=== PATIENT | male | born 2000 | race Caucasian/White ===

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

== ENCOUNTER 2020-07-05 16:50 | Emergency (ER) | payer MEDICAID, OTHER ==
[~2020-07-05] VITALS: Ht 172.7 cm; Wt 106.5 kg
[~2020-07-05 16:50] MED LIST changes: +HYDR-4571 PO
--- OUTSIDE RECORDS SUMMARY | 2020-07-05 16:57 | CCD ---
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 WITHOUT CONTRAST 89258 CODE 02/17/2020 2:15 PM EDT 02/17[facility]2020 [facility]15 [facility] HEAD WITHOUT CONTRAST 70 450 CODE 02/17/2020 2:15 PM EDT 02/17/2020 [facility], ONE VIEW ONLY 69990 XR FEMUR, ONE VIEW ONLY 69904 C ODE 02/17/2020 2:11 PM EDT 02/17/2020 02:11:49 PM EDT [facility] RADIOLOGIC EXAMINATION PELVIS 1/2 VIEWS XR PELVIS 1-2 VIEWS 721 70 CODE 02/17/2020 2:11 PM EDT 02/17/2020 02:11:[address] [facility] XR CHEST FRONTAL ONLY 53577 XR CHEST FRONTAL ONLY 79739 CODE 02/17/2020 2:11 PM EDT 02/17/2020 02:11:49 PM EDT [facility] TROPONIN QUANTITATIVE POCT ISTAT TROPONIN Routine 02/17/2020 2:07 PM EDT 02/17/2020 02:07:[address] [facility] BASIC METABOLIC PANEL CALCIUM IONIZED POCT ISTAT CHEM8 Routine 02/17/2020 2:03 PM EDT 02/17/2020 02:03:00 PM EDT [facility] BLOOD GASES ANY COMBINATION PH PCO2 PO2 CO2 HCO3 POCT ISTAT VBG /LAC Routine 02/17/2020 1:59 PM EDT 02/17/2020 01:59:[address] [facility] THROMBOPLASTIN TIME PARTIAL PLASMA/WHOLE BLOOD PARTIA L THROMBOPLASTIN TIME (PTT) CODE 02/17/2020 1:55 PM EDT 02/17/2020 01:55 :[address] [facility] ETHYL ALCOHOL LEVEL ETHYL ALCOHOL LEVEL CODE 02/17/2020 1:55 PM EDT 02/17/2020 01:55:[address] [facility] PROTHROMBIN TIME PROTIME INR CODE 02/17/2020 1:55 PM EDT 02/17/2020 01:55:[address] [facility] FIBRINOGEN ACTIVITY FIBRINOGEN LEVEL Routine 02/17/2020 1:55 PM ED T 02/17/2020 01:55:[address] [facility] BLOOD COUNT COMPLETE AUTO&AUTO DIFRNTL WBC COUNT CBC AND DIFFER ENTIAL CODE 02/17/2020 1:55 PM EDT 02/17/2020 01:55:00 PM EDT [facility] BLOOD TYPING ABO TYPE AND SCREEN CODE 02/17/2020 1:55 PM EDT 02/17/2020 01:55:00 PM EDT [facility] TROPONIN QUANTITATIVE TROPONIN T Routine 02/17/2020 1:55 PM EDT 02/17/2020 01:55:00 PM EDT [facility] COMPREHENSIVE METABOLIC PANEL COMPREHENSIVE METABOLIC PANEL COD E 02/17/2020 1:55 PM EDT 02/17/2020 01:55:00 PM EDT [facility] Results ID Date Data Source [id number] 02/24/2020 08:28:41 PM EDT [facility] Name Value Range Interpretation Code Description Data Zahida rce(s) Supporting Document(s) Discharge Summary [facility] LDEPNr7nVsVPOaKa79/SDHnrQABno7QpHPmyDYw5HIcpWIRkR6CqAID6xQ6lIRN1LWpZQsIjSaAjCDH0 lbm [file] ICAgICAgICAgICAgICAgICAgICAgICAgICAgICAgICAgICAgICAgICAgICAgICAgICAgICAgICAgICAg ICAgICAgICAgICAgICAgICAgICAgICAgICAgICAgIC AgICAgICAgDQogICAgICAgICAgICAgICAgICAgICAgICAgICAgICAgICAgICAgICAgICAgICAgICAgIC AgICAgICAgICAgICAgICAgICAgICAgICAgICAgICAgICAgICAgICAgICAgICAgICAgDQogICAgICAgIC AgICAgICAgICAgICAgICAgICAgICAgICAgICAgICAg ICAgICAgICAgICAgICAgICAgICAgICAgICAgICAgICAgICAgICAgICAgICAgICAgICAgICAgICAgICAg DQogICAgICAgICAgICAgICAgICAgICAgICAgICAgICAgICAgICAgICAgICAgICAgICAgICAgICAgICAg ICAgICAgICAgICAgICAgICAgICAgICAgICAgICAgIC AgICAgICAgICAgDQogICAgICAgICAgICAgICAgICAgICAgICAgICAgICAgICAgICAgICAgICAgICAgIC AgICAgICAgICAgICAgICAgICAgICAgICAgICAgICAgICAgICAgICAgICAgICAgICAgICAgDQogICAgIC AgICAgICAgICAgICAgICAgICAgICAgICAgICAgICAg ICAgICAgICAgICAgICAgICAgICAgICAgICAgICAgICAgICAgICAgICAgICAgICAgICAgICAgICAgICAg ICAgDQogICAgICAgICAgICAgICAgICAgICAgICAgICAgICAgICAgICAgICAgICAgICAgICAgICAgICAg ICAgICAgICAgICAgICAgICAgICAgICAgICAgICAgIC AgICAgICAgICAgICAgDQogICAgICAgICAgICAgICAgICAgICAgICAgICAgICAgICAgICAgICAgICAgIC AgICAgICAgICAgICAgICAgICAgICAgICAgICAgICAgICAgICAgICAgICAgICAgICAgICAgICAgDQogIC AgICAgICAgICAgICAgICAgICAgICAgICAgICAgICAg ICAgICAgICAgICAgICAgICAgICAgICAgICAgICAgICAgICAgICAgICAgICAgICAgICAgICAgICAgICAg ICAgICAgDQogICAgICAgICAgICAgICAgICAgICAgICAgICAgICAgICAgICAgICAgICAgICAgICAgICAg ICAgICAgICAgICAgICAgICAgICAgICAgICAgICAgIC UtRFAcAQUoYHKpPMLwYQBfVDy6O4hfDHUqZNCdQC0qQDf3Wj6+LGvWVrGeQZR8nlDdyA0VYS3oq4DxZU oiEPVxq9PyDXn0NG8IOBZxWKneUD5FEFaail8KIMNcOTBsuDPVx4zhYzEtFLI5XUQwLnayKT5GDGMbE7 otfvVmMRZkVGRNLIpvULXGLJhfXBWZXV6VPgNaK5Ch wO72NAIWVz7+SYioymFaVkpBTnIyCOPxv3OuUVz6JJ8MAASoMcqli8VvLjHkXFHVYMtaCP7VSCB6VKZ4 KMYwEk6XOKPeO371kcGxRF2SJh8JHkZpCT4cqm7YMcGmBCGwAscAGtz6RYqnMK8BnWPoIFyCeNXpbXXg R7HdC4OilWVjjBCrpKKMyx7nKJRiQ6hbthtsUdPdSO EjGJ43LdXoYcDeNJV3SIFjIE8lWSybFE7BQLZ9JWcpUVEhSLPbX1pIHmImBBVdGyCxoZteFH7OSqFgH1 BhcmVudCAyMyAwIFINCj4+EFjkfwAfOiwAObF8DXMqf9NhFKh8IY4HOFHcQEcmBN7PBDUrdN6bIVbmBQ 2BBwGsGTSoKMLNMjEdZ90viBGmYKv2S6OvVzCoJMIb RmlsZXMgPDwvTmFtZXMgWyBdDQogID4+ID4+TIpvFR3MJOkateWlTTJfWt1FOUPtPASiUH6bHVWoPEEp U7L9uAxsPVQNHyPpV0ildaizQC3iZXVaY265fUfegzXkLNQjUMBgMq1TFKBtAER4TJDqtEObPiGtZGNJ BXxuAP1RpVRiGQB5lF7gUYvbLWUgKWKoF1mRHyLnrV axDT12vKmaazBoiYJpWCw+Sk0ARS5qh3PxDCu2rmPtGPbaNOI2WWhySXFvDLNjSYSiMGV1PVV9UBOQBv VvMYTlKZOiDOhyGAXuVTSlvo6UIXXzVBChBxG8BtLeANPqWXDlPUbgYWTxYMK6SuqtTUClBJKfOG3JCc VlSIHuVCHiYNkqUNSlPCLxwy9KOIVzRASvPbDjBLJm KFNcKMJrNIseXPJrYNDuYCS3JJGuZOVcMX4EGzSkSGFnKDCcOTozFNExHKIfzv2KIHUiXKXlPfU8BvJc FQGmWROkMAryMKBfWPL7HVj2GHDeLOPvXB0JXlPrURPwESowUJQkKAKiXXFwbr6ZESGqOJCfOQN8LARf IZAgPKTmTMbjRQBnFDV2XuM9QGAwODKzIW7UFuOnUX InSZe6IjDwMJAkVAYhud1LOFZuRZVlGYS6VQLhICAjERGkLFhjWZAhVAAoIwiuHVEdPPNyKP4YEmAnFP IeSOY0CnztWLYcGLQzqt3QZHZwIHEtEXweEGLuHAKwNVFlPOopNBLlDZD1GNXgOADwYTKgUE2YAwDmZX DrJOKaXbGfFLAoPGCnao1PDMZrBHKzKuMoOEOcHQUe IKUxMNulUAPbQWH3JdMvBXEjMYIfCV8HQcAsJIXzUKepMKFvLIMuKQXxqp5DOGCyKBWeQQVwMoEnODWn UXHgAEekSLKhKPR4SGnmTEVaEXKdPD6ZOrIlTIWgYVi5LkMxLFXrXBVpjl5GtXDtyMvsxi7YUWdRRp8O dNegBUW1TEvmKa2kpUXgVKIaVUSGKe6PdcWeDWOoUB FFYXazQNBbVQTiQ8MrVnFrAHXbF3B0YFZjZwl7WYU7OqRmSFGmOEKuYxO4DTK1UmGnXBXvWpTpWkjnXD BiMrE7XHmkQcR9RwXeCxA+VG1eZVc+Qr6By9QmdtB3dhZcMQjlWDh9XE0IFJYJB4USNv== ID Date Data Source [id number] 02/24/2020 08:27:41 PM EDT [facility] Name Value Range Interpretation Code Description Data Zahida e(s) Supporting Document(s) History and Physical [facility] SIOSKj6iLrQPTjXp19/RSYqlOINmu4YiUHucXJg7JPamIELcL9LiREO9cO9mJMR2TSmJAzKpGxKrUGT2 lbm [file] 8aTCLTSm4+XUmcfFTmqOeaKOXVQbD9KKBwMQxpPEYKWk4F ID Date Data Source [id number] 02/20/2020 08:11:53 PM EDT [facility] Name Value Range Interpretation Code Description Data Zahida rce(s) Supporting Document(s) ED Provider Note [facility] LBWJBn1zQtNSJaTx44/DGIyhYTOnb9OiNLymBIa8MHpqDZCcU5HrLJH5fN2mPNT7WQeKMuEdEgBrVJH9 lbm [file] AfCoFfOtAW4QWs1LWuF6AST4rGYdQy6YOzd1TXlQVtFiXZ3DGBv= ID Date Data Source [id number] 02/20/2020 08:39:15 AM T [facility] Name Value Range Interpretation Code Description Data Zhaida rce(s) Supporting Document(s) [facility] TTJMWs1sDoKJXcLkj8NpYnLhULMtUO5xoaw2J8L3dZCxC2AcbAZnx4wbQ2RwH0XoYFQkPGLGVD3NvARp jb2 [file] 7xv/73x2++/OUvP//220+f//LvPr76+d99/Pzzr7/89MuPf/7sYg1i42465G6l96xki2AF37L1Kwa75b fSe0KgXJE3S4w+hz/89L/5akp4Z28odU0pH64bnC9L32v88ej/w1Tc44yk+uln28vz6XI5m1zvbfq0vm 5F9m0q1F70VIGoUe289/izoJJnst2Lhs/8xw9//nNU 1mcfH//z868+/98UvfvbqHG/PWt/+L2v5Z/sfWa/v1a3/AuCw4MO/0sen3ewdy+ErrQIOxp4d 9zc//PEvf//x59/+9Ec452++gB/Ih7N/9If/+vHZD/Z6hh+f/YC/+vbjd3/8yw9//r9/+/v/9lLeNn3P U3vmI1ajl3b/2D99+93Hv/9fr3v/3Z/++CEUVes0W5 9dq7wOS16/03/6/l3Xl49FCKZ86E+pxL0zZ1Y5myGYmK+6+CcF8UrXzloy1j56Ioe04S++/cn3H7/9f3 74r79+ebJRO9/+V8d+vX7r43//+V//9ke/Cb9e9W4//9a+0l134s//+cOff/S/l8mU06v//vh/79vyPL //X3/1w5u1uf3Wo/5q0I1Uwk/6yXnWX/5o5f1ibe+5 sYaW2TMs//Bv//nH3/9d6917r87+yo6v6j/8osm21Tg/9ZdXh/t0g761y550v7++3XlcNzhBvHHffPXV p6+//+6zovbwPRu6//vJntnYx+Cw+qvf/h8/fJSPP/9Xo22z2X78p6pUr4mFdWOtU061+hsa3GEGfZ/6 Sjuw467/+vazCPXcugDz4/MvvngNyq/h0h923RMV4s 37/iq9VNbLJkBfUTR2tzPshGkaoqJgYdoPBZbiNBJxCsa2JT0QlDPoEFWfL1S0AMQfgo1dEXWpNERbhP NiCmQuCZRGQQ5OzZImZV7VCAr6UPXnZKBpDpSsCMSegnQ0AYGcNNDnYADtS5PxioLbuVGyWHNwCl8+ZW 1dm3ZrWaTuJLQbZdo0LV4KzXCpWX6JqAJhdS8reeBm V461ecEqLDOcSsqfr7XpNWqcKUEVTW5MMZO0TSP0FTEiQn8+GJ6qe6WaZmEjHXGvDfg3YG3FpIScb6Kd EA0SI1IgYMRyLZDIMNG5c8EpBQUfrbivavdsP8UgXHU5vM3dSFD6SCWoVZssQNEkMQhcJOY1FpgmVZmh UXMlFTYwVFIlTBJkYQb5sCUgBA2OJ7OlKYSwIXIJMW SnvcBiHm2jQJjJIZ5MADbhWxHZTF4VAOzzEdj5RrU1RgmuW1E0GngwJ9MqZW4ZX9LnPZEjQFSWQGQjnw MqMH5RicZewW5cZNnZXRWGGJsGHJlfHyC5g46xjhOQMZBvNXIlWTrgPIXvTPDyXZLtEAAtQBChGLTsXP QnVE9VF5CdXKYyXIXUUHD9f5BdHPSeevhwowndXz5x bmRvYmo+ItdtOOPoh0QzVYcqW4U0nSLmU7IfY4MoYU7KvGVfAEntXRKrDMThDNWeR153bwTmQU6+ZW5k c8SeDjwjQLRMVNJoTLHrSCJbZLK5WnFgXMNqHTUpYZWeWfA7WhRfHcGWHVMhIJN2JDX3PpBqCSPkXRNq GZrxSKGwGCraYUT8DCVuYQWjZB6aNpSwRCBnWqC1Fg KkZDYqUXMtelMPLQUaFHToIACiGKE6KGGtVNKrFZezMFFnWWNvIJP0WTEqLVUgIF0kDrGaODRsVTZhXp tmWDRrGSDiznOLBXFbGSItUEL2IsEuFVPjANGvDGqjYEIrHEYuNys1KBHxTXWeIF9kNsDgRQCiLMH5VQ kgMDAwMDAgbiAKMDAwMDAwMDUyMyAwMDAwMCBuIAow WAUfRTHjMvGrFXLqGJYfCO4hOrWpWTRwREH6IPHoTLMqYEAivvTOQQUiJZEtHGi5UKHiQOShBUSaSXzo ZUNmDKLwOZR0ASFcZOIuER9bCcCnHDPsOEEvHVWfFIHzKQKnltFTVYZtMIVrBPM2ZLRtMUNiQDQvUXxb XIOdTKScOdp4THSfVLHwRK8bUpFpHHTjTWZ2TTRqZI QzPIMtsqGIMVAwKLA6VdkzZaRvYUGmIDTbKAemJRQcNCUwInE1VBPoIBQeYA6vSqTlWEOdIJM3GkEsOZ DqQFRvxzDBPEJgDHWxBGH6CrJnENAdJSAlWEgnCSBmIRUtBVQiFBF0TMP5DGMaCyMtEGsyTHKWAAdLP0 AedwSnMmOPY1sfAe0mGzPfJTRSC6Yde8SbCMOfCSNVZl0+IdF5IGY9jVWlRhj9YFL2BVtpZLRQQw== ID Date Data Source [id number] 02/20/2020 12:32:57 AM EDT [facility] XR CHEST FRONTAL ONLY [id number] RESULTI nterpreted by:MARY ClintonROCEDURE INFORMATION: Exam: XR Chest, 1 View Exam date and time: 02/20/2020 12:28 AM Age: 19 years old Clinical indication: Illness, unspecified; Fall (on) (from) other stairs and steps, initial encounter; Other: Chest pain TECHNIQUE: Imaging protocol: XR of the chest Views: 1 view. COMPARISON: CT THORAX WITH CONTRAST [id number] 02/17/2020 2:03 PM FINDINGS: Lungs: Unremarkable. No consolidation. Pleural space: No pleural effusion. No pneumothorax. Costophrenic angles partially cut off.Heart/Mediastinum: Unremarkable. No cardiomegaly. Bones/joints: Unremarkable. IMPRESSION: No acute lung pathology. THIS DOCUMENT HAS BEEN ELECTRONICALLY SIGNED BY KEYLA PETTY MDThis document has been electronically signed by Keyla Petty MD on 02/20/2020 12:32 AM Name Value Range Interpretation Code Description Data Zahida rce(s) Supporting Document(s) ID Date Data Source [id number] 02/19/2020 08:16:58 PM EDT [facility] Service Cmnt XXX-Imp : [employer] XXX Cult : 2019 nCoV Real-Time RT- PCR: NOT DETECTEDTest performed using [employer] Respiratory Panel. This test is only for use under Food and Drug Administration's Emergency Use Authorization.Additional information is available on the following FDA websites for health care providers and patients. https://www.fda.gov/media/657707/download , https://www.fda.go v/media/517825/downloadPolymerase chain reaction is NEGATIVE for Influenza A H1, H3 and 2009 H1 viruses, Influenza B virus, Respiratory syncytial virus, Human metapneumovirus, Parainfluenza virus 1,2,3 and 4, Adenovirus, Rhinovirus/ Enterovirus, Coronavirus HKU1, NL63, OC43 and 229E, Bordetella pertussis, B. parapertussis, Mycoplasma pneumoniae and Chlamydia pneumoniae. Name Value Range Interpretation Code Description Data Zahida rce(s) Supporting Document(s) ID Date Data Source [id number] 02/19/2020 04:43:[facility] [place] [facility]-Imp : [employer] XXX Cult : 2019 nCoV Real-Time RT- PCR: NOT DETECTEDTest performed using [employer] Respiratory Panel. This test is only for use under Food and Drug Administration's Emergency Use Authorization.Additional information is available on the following FDA websites for health care providers and patients. https://www.fda.gov/media/114876/download , https://www.fda.go v/media/599513/downloadPolymerase chain reaction is NEGATIVE for Influenza A H1, H3 and 2009 H1 viruses, Influenza B virus, Respiratory syncytial virus, Human metapneumovirus, Parainfluenza virus 1,2,3 and 4, Adenovirus, Rhinovirus/ Enterovirus, Coronavirus HKU1, NL63, OC43 and 229E, Bordetella pertussis, B. parapertussis, Mycoplasma pneumoniae and Chlamydia pneumoniae. Name Value Range Interpretation Code Description Data [facility] rce(s) Supporting Document(s) Microorganism identified in Unspecified specimen by [facility] This lab was ordered by [facility] and reported by [facility]. ID Date Data Source [id number] 02/19/2020 11:22:[address] [facility] [place] Name Value Range Interpretation Code Description Data Zahida rce(s) Supporting Document(s) [facility] JMXIQf6tGqCWKpKlo7YzSqIsHABlTB6rkxi1K6S3zCSzF1PpuMRdg9doS9WcV2RwQSWhOWBSXT1RsYXn jb2 [file] +zcWfMvY/3xV9/fY918J6Ga/+s5o+c5uQwRu65B/qP/8O/abdirashid/93+49o0klu6ae7l6y/f+vc/iqfBpb7j vjPyN3/6/v1E5d1/+k4/POmUrp+S1U7Myp+NgK7jv/ ZHz/bh+3/fK2GaD44uO8nyghz7d05p7c/QHqdT8ff+Og34X70gb/vt5/8h6CO2HMgom0/3lfV79Mw4c9 Y2GH7dI2JdR9T98mJVOG8O+OE8lZk0P2iZ2lW1hoCQbVqVk32F+m+g/wb6b+wqHa2Ey5l1zOxhMl6Bib xFp4SexsX8Im3NqzDlu8OcA8q5rBu5nosX3qY56N0w +t3kl5xcs0+WnD/oIlni9l5/cK87nC4r/k054r0uAg5i03fF6oZykU/4jiGfYegeo/2pr085o2r/PV5o I0kmpVf2lM7Br3o7hB97n0Y04Rkiy90e2h8R6AfgoA+3B4oH6bsrdz+Qzho9Lro7nT+Yyfia658jIkfe 3rBX85dqWx+u43kM9u30rxLOm4T0aU7ximC3nj2z/9 zr+u2GP2/92fzEko9Ot0/cubbhf7k7/17/lI/nfU/1+V1Qy0f4W9jqWrR+0D6+/n+vyiFvq9n0o8kOpw C+4s0eo795x5mCj9lDzaG2s74W5zFj7H7P2cWffM/+hPuG5eCtK4ca5yzoX5owb+1rN3+lYn8RO7ry/B 0h6nBE4+c5o40066g/4hKe0EpK23g3mByx9UeTQ1Zf 9/aBSze57WsXnxHlvx/6vsen/fxG/EoldeJXqqg7/CkyvG8ht0HGxfL1h0Dg1I0E2kD+2S1kAj1cRtmz qJSyk4GdkmBCM/yItlspLpdJS7VOTl+9FO54oj7bPyuYi/ySY45Qu79qB1B461gm+lgO7hphU3j72pmb A9e/5WQCHs0u0r2nCOu/cvArB7/o9Hi35ugis8716c AbF7/XH9U7cq3Y0aesfB1tIcugZ4PvCq6uUEc7pf9WbL+3K3BLpL+0W9GddN/wQa6p4XF5K/Knac07hp /TnpCgz3UvMyN80/QqLIySa2pRJ/Xw4D6BaohfWg80fvombb8+lqYfG5jkaUuQG9l4T2UnCj+1N/nJh1 /7WO057I83LBIu0stxZMTTYahSHLVZnDznwhs074mt 3T6/81ua9Md/o8vsbFKxrVwrPSp1SrRDQ58Y2H4NpD19Kb5IQi70GM//1HwtA1js6HsjzgpcU27P3bzM tn9gYwrUm8+C9rhIFb3osaJOOiQ+Erz6u3Dz3eYqeiBEx244fsfU0nwcjbTD+0A73u+auO/GrBpe0o0Y /rzgzxv+vB+8I89EnVq3rUqpK0uVo5pOv4a6+u+GP2 /03z2u/ks8rNv2sznC6u78Ua+d1yo9g6q6Fg/7qby+x9/z56Aq35H3C2L9yVwdB69O8+8gzR2RIpT+0K 7+q4wea84vQ0dB+hw28QeBI38oeN/CO8Mr9u3dJ/noSIQ9Y3oSv3n5T8f8+VoIyoF7Uy7T9SZVCxfROi t8stlC+0L7/z670WeihsApm17Pplk7oMvxB6dc1ggv M3kR5OS1zLrg9xkrlK6mtJX+4K5jmtM36/Z2+SGqL2lH4Sjp25223CA+AfiR8I6jCz0d6RQlL+6L99sG 6mWzg56O+mct62Qqg56g+qnz81DbA1M86m8fAf7A8D5nVz3Kb3ViOy570V5l7v7Y40r55MviC9KuqK/5 jVMXfY/Zfxm2aBfaXk8cm+NK4ixnD+1u8mDgshuI5s J1lPpxI9sU4Pokz+xrn0D/HXd+45RAJ/c+QkMUgE0QoOG2Q/+c3/pT/gt705R/RfgWqP7P9bi+lfXWN1 44lc/8TE3wPm0/8B0NYjD+2H21VPnNklTzAg8upy+SLpq/ymPoO+98Tps3/m0T/uk9flwMa/3njRdOmf U9hKo7Bb02uum+R/VzS7zZ83eD3tH0kw+loretta/y+P5+ 6cdZrg90X4yt/V34/gzt6BegC/cTmaju44bqT34rrPRNB61VrA7jJ0mwN58DpX+3LFf22BdH9b6i95ny 6Ds7sQEBn3Vi8d9qa7y//KrtjvZ+j2r0aieSwI725/mnqbfcmIkfY78yQ6dbL9wn6Tm2uw+1cmhxpe4p 7M/gW40oN2q8wU/efuqVp/E4EtrkkFneI/FCy+t84o U+go2uKbfKzvLHJTBGiDCtCM/a5E+3zT2DN43pjg3nZIn+Unmp5NF+9WhStorL9/vrh8pA1k/mzXH2Yb +p33/pz5w8JkhtvAu1ela3RlgMrn9+fLoQ3TpJ0pFyG/2kcj3hy/t+u11/8lSeY9Zs27s7Tfq4h38t0u +61gfz+Phz/zj9u6h7RW7W74uxZ7ckI+peWh/UuVof 5YX8Jnghkt/f+Ml1Jqv1llbc5TcHw1EmkG39fq2M9KJwZ+1S8Sjk8OgAo5obq09j/brnzz5K9zhhcHg9 bFq27YDgk6/kjmuuRj5kO9XH/U2zKoJsD+4X0JdjMo40Gid2MQ6GgvC9g29FFq/sAy54Nt+/649q68b4 3/Wj3u/2Zx30Agejx3pW7l7KxuSnOl/1fufbO/hVB7 /q4Fcd/AvWB8Xoth7X0J7sub+gNpE8Ix7g9wkR5bK2Ix+cDiZ34z7U5m/tlk7mVn8tzE9Zy/u4/LmPB+ 3WmlV4x77Z3bAf9M5TTw0Y0E6Rx2q0rE+7XtbHnW/i5nph5Dy/eo/RvtG+r4t48BqCheF1ti7B9wjgry e9rM+7vtDnXV/tu6B1ztH8Id+lJ0hjpF0Awjp+6pq/ ynPxfjV/igzb3Of/35Ye741ttLL9Ltemzqr09P6Z5t/C+114vwvvd+H9Fht27N5xxQ14Gdl6lI+Cvgv6 Lui7oe+Turxh4Ksi0145r/XU2F5imp1N6/pgqL1/eXvX+zZ8yqMJf5y7nihy60XPZms4SgkI+yV4utrA dmU5/Erzlqfc9+8B6Y00l6jvrhOaK+y9w0Mki3jojD 1w6/wzg7TXR5Zovs7xu9nrmPQyX6qM4+ZdhiWKjRY1uOIoM9EKk8JNDtBf0F8fLK2XiB4J8ymmgx71vd tehd31/bCbnxPiV+2o8a9io2uJeH+B5hbp9HMRVLm8KgEa1zB2U2ERxR+4M9LrmT+4n4WzzDZD/Kut4+ /3MZB/Group Home/XuPg5jckTw7E0A1uUe9J6eL7VNgP+0T7 GR9J3HcYalCgCX0CSo2ejwLumw+h+Gv6Plw8H2oz160hVG/wP8fs5bM1IS+VRbYffbdse/YfvK5nikI/ QyYa8fRlzZ5I4yPzSPA/2sB1mN14mLoQajd5Da2x1P+9x/LBEOc27f+SfQwgnZUdC1h7091Bax3alQVn Gh8Ij5855Usln0Mz1ryiLTY7F/oiRo2q2oR/pT7bb/ 8V8XqdS/5F2pO7GpFl97irO82axk1S6wmC+VeB/KtA/lUg/fkYgwM4FlotY+5W1N5yaRKDcnfrHEYaxF XyNZTp0WQAiWC1mCmjq/yriMsnI/OvdIz+G/UsctQFJunuN3Zi1p7f6WkdjrNn3n/6QiD/KrA+GAP6Du g7oO+Y+D3GK+EnlmE3JnQlcH9V48U60jHKL1yb4cYj aG9oR/+r9MizM2U2p8E3MWuQdtAi43tbptUi/Tri/uo9/sYFMW9+TaspC9Q53/shfpXHhnZD+23NJw31 9gC/QqCtJL1A0KtKingkq2tRE2c6/DnWjRcC+VexLn+FeiypvR19v84uY/4cG+RjWaAtxS04irR3ch+J 5aTt4X6gqLwnL2Y5fM1O7lE9fP/tB4BZ2g43S/TdV9 /iCS9Y76Xy1V0gi1F86aovB3g73ebgE+3R1yJ4qruS1qb6ngpO1w274UaP86ZdCW+DvuJXqq+xy5+H+N D8oTlWdwoc4Khxy9Og0H4C8T6R1V4RvZ8CjB0W0Q6Sc/lmw2++2xCT6XQ3J8zr5yGe4X6iH1zq/Wp9UL wnyqCeFw0wuaF2IUr4vQIYodOIILf91tqZ07KQEzc+ 8cXQ+uBW+/7y/1PnmvHFKXPNGOFUuWbscIpc/27UtlEuC55pfLk0K6F1xOk60dfkT/Q86o8ka/HR0Pqg 9GrQV+uDJwYZWh+U3bQ+UJqebPLGIQXJCu5e3x6c/ja9kfqxgwmpp/22SS286G32wfX3Rg/fn5R7CFOs an0wj+r9dqT8bR3efwR1ua5KP33+1/wT6MU3BD/Mily [file] n6gN+jennifer/YrnyqGpCwqvFx6JcIxK0XlMo7+zH0tl+DvYZNTrNlff2KYB7iPxfxX4S0nsqf23JJ8+LFX/ dOhsa/SwzY321WrmtyHXu2aUF43+3h0TMEU6grBZD5 ZXZVyIxcqtQvxRSdSe/W1wYx70dQQ4K6/nbYR+0qiXowg3SZQ0MitSlU8+LNWrTHvyE/aqH1QK14YLE1 xaM/uxXFn/VD+WCoggP+hQ0yxiw5ANCSPdiJsI/Viqast+LMcw/Ww7XA4hVSG6bBGT1oIyIE03pM8+Yp zmBm6Ar2Hd0q43JS11TNPaSyLSFWCUdNEyZShV0Zdz +onaoZ+lAxzS1cCmiH66gzvxt0bo+zzmiW5Zui2JQoMDVWmWaEejlaoQqq+cHk9rPj0RQ/QTtUM/UTv0 W4ULC1J36KV3Bn6SA/UEzgwZGOGJ2B/nFAIWeXS0RE/uMOaVOYVTMNWCq92u1MkZFowGJ+1c/Uqe4e6i iNgG0muwfww+ZXQBmYCsD7lnYScEeU2BV8hFEVjxC6 4ArPi49njbcUYyuftrnmG76eLvcnqW4MfBki2nUYTiPCv2kVVGqcZy6pLQCDoGpQhRKzuaRLyqOnjMsI Rpd2ScTAmntFkABPAldZ5oP5uzyzM5iK7GmFbP9PdBa+UxBpGjHajZj+ZUNOpPReG8Y3mO1rLJ7LZS0j 9RHN8CPfBTfORbmQxNKXWZzDHCZnCuFgESJIEVHJH4 dugnap+JxAZKZyPjARGPWQeBCKHOfiTKiJRbZKLtMXeCkXfAqkNkCbRtkGuW0WdCAKzY40YjMP4/V81+ LI+lQFHYS0KIfCBmnPZiKv9LcN9GMgv1kR57WriBYH7eNkwO44N65M730qDbKVWXHtThzUir9va1Wamt FiNm5XQnNX37ajBF55wP/Y1J0S0IAh1h2ufYWZiety E/UgOhb0USHaHD2B/bXPnN6EYLmO+aDl4NBdnkqtX/FS15gYc8XS6ABTwBUWyLbtBYDPDGBNsBtcWOYK N+ekt4S8N5abHNOlMmwQC7P2Hvm3iS/GJ64QjmJM6DIbcXwqVHHXC+osy1C7Gov0dJ/SJ81QwqID5CGL kOoJ+o1Y/kTHvaqyT2qpKyi/rFHt2FGoEipfxF4AdX maDAp6YWyHy6FA8b5Rxdaf9TBb2dR7f5n8VCNQYjx10+LHvcEROoD0FW1+gCsskN7R+vprlq4DEt0jWz /IaRCQSvK9kyiGd2UdmY6tRiVFoJTr+vTwo9yz8Y8CMUpr/2sIzHCUGi3BS04H6cCdbYjTuS3/qfu26c V/4Zp6Eq1A0fek18+nRsBUeCniUkh5MsaKRf0zRuG4 2IZT+ROygoK6sQVSa93BsUkZcE7rGR03WJ+BmDlbJIj1rvXnv5kKT+itMfsRLlFxnORc1kfA8q2Dhe+Y mUvaRPb1qpBzy3qZF+Darryl/RD61pQfOPHzj7AlGHnkIWFpi8YfORfjWIOxuxapJ9vyIvECfbQQldh4pul QYalp3T5xYzBAt8OvOC29cytwvWS7LeoQ1E8xGV3TM nIgTGUQGkYnROybPYPHcsLYv+1KsqnhvIVG4Hg+WYxBpRBoRjoPJcTDx/eO2ydWgjeHkuQ7k3ghEAhCE BDHOHXVMkc3rgqWL/rjgmuMKHn0tRBs21vTQu/hhkFXM0BNHqZYuMo9r7AfRCvjhBLN/5enJPSGMMr9b 4cYsLM77xqZC15n6dj+tR0ntZTnx4gKtRtqPSl7wb0 /oF+ZY/IKdg23USMH2esDWs/Orz2+xliVoQZ//6e9ejjklt/f2+f96+/d4vcZVXMQb7bp/sBov2w7//r e3//1w84dkudvrZ/xhSJyev/zq11+6RXn1ua9C0O3AF293pe8+fv+L4G++fh6/uOYXbfDvX2+uib//4c dv//ntx+9/+Jwm28s6du5++hkvX8u46jF1O/3246cf vvr8z7+uN75tx7+++/HzV99+sNy47oCxjf4+1bVAQ5oxQ0q9y/oewE6JdCrXirNkvd0ol7oCI769mZ0/ +eHTr7/68Ff+6x3Moaw83zksene+64+vc/r01T/79kPyt5502tnkr2r86jzG8804h4nbhn7hz//49v2H z58/fvr2r+xG6uK++/ybj5/+j69++Qg13Osfxngi9N cv/+Ewjk54MUpyq/vd2/zbKu52a+9e5/n6yx/bMcb0h3rhf/jV1x//yj/nfqL7U6/+6Y///vs//+Gnf3 v7H//n2ZupnaqT5bZ/+8eP/+3thw//+Pmr10n++sPbv/ytt3/5u7c//fFt/qM8Gv6AvYktq/O6FR+++S /TmLSN681H/vCHX/7aX04rDTiaE/fP5iXv88DIJLl/ fvO/OYwO67Nl59+/98VNVvrd1/dQ4lpjukmUtOSlYQ7J6CyVRJ88gt6n4Mqm/8Gnn/79pz//SnH6bppj 4v/57Zsvv/qs64tOKndi6w2tbv+6/kahSiKjs7qh5pZlsyB8AznuLFdY6iKT+eEBf/vTH//y929//t1f fnq3+0vZ98yG2Cb/9If//FwgWpc0n+x9g99/evv9H/ /y05//n9/9x1/Z/Q7o+77bqc3M8q/Z+8b+6dMPb//2f7/O/fd/+yHQeo5ztn/uqk3vbu1p5a//6fO/An /8acvjty7hcoPxc3cVLhhUwzgS5lMCw4HlmXSwHabeW/Zg3//i0y8+v/3u//3pP//bn2Lycgm55WEm/+ CpHb83aj//y9/97K/3ffjmd//x7v6ud+h3f/mfP/35 Z/+7ozyu3//x5//3IWzK5E//47/+7xO+T3/60x++uFei95/9yb7Wr//6i41QuaGAIakM2OQ///Sv//OP v//X3//uj1+7miPh65qxk7j2Ho/2f6wj9p67H5B7L//farm implement mechanic//yGnj/9sVffxPHCUROEI/kf1562/Hbzz98 wQf+/q37//+Qk9ROn2Eq5p8/93/+9CZvf/a0G364jp fV8+J4e/n5gvJ6o/t7991f0Irm7Ijqb+y7T7/++XmShOhtT276QsX+fPnldz9++/rbdos/hMIP7zw3/w GAeqAPFuKzQJT4rgUooQtrbuFpOtgTZAyeHNQfOlm7KE1PqEMeSJFeJ4D0IMWirj7yFKLrUPRxiJKjYf HxSPUFSN8QaEUrAC9RZKh0TTVzGEHfVmOmQJHtuvD0 ACCcADUsJXWwM7GfftFzlADcVVAuSh5+AT7za1DtMgEgSLTsDfi2DV0GrSSkVP8ApCKogD1qzhTgH496 ktLfFBQwPhwkd8ZxNMnrDPHGNY4VZBH3KRO4MFYvHa8+KV8vm2LwZgRrFOOqUlb3VT0PhYAiy2DkQL7O U1XfJUEmTTEFJQP3n1RfCIWigomtcbkxH8LtAJS5uH 2aJUE2RCAoACyqOMXdGKrpLdGeTjHrLXmwNAZbYXVxBRSzRQFiBGt1eTAjLR0XR5IzNTXlKZPOINYvyk VaIo5pQQnIZE8KQIheKhIWLQ6WMCanPvd2WmL1XyhsG8G5XdgdD1JiMO1CX0SyNCLmWZPUECMbqcDxKH 0TlcNfeC3oKXzKBSEIZTcHVRkvFqF6h93fqhRBRWZt WUNcNAhtVCKbCWWpTMGbDGLhUSWvTKZlFTRaGZ2ZA5IgODTmLSUJKAD2h6MuGAHmneqqbldtDp3jkiYk Ymo+PpagIHVxs5OiVAaqA9C0gJUcH9PjV6UjXR8JrHBkLUkzKNZdGLPoPSNlV027etUlVG7+FX8dz7Fa VjklTOXTYARoGKSsFFSgJGZ9TuPjRPIjLPLfTJXkWf E3GvCjVpSLKHBtFXQ7PAM5MOIwUYZoNRSnDIobDTQjNPnvIGP5DJHuGUYmNE1oCxDfOWZtJuBxMZKmDE VjDHXicdMIFZMzKANkHGPcTNW1AWCeOYWbHQgbWOElBOVpTFM1KCYbLXGzYY8kWlCkIEKfDNCpMszvXP YhLGCzxkVRABEcDVJgGBD0UfQtZASyMORmGXtiDTRf KPKgGmu4CMUzKXUbWD0qPeUyMHUlTMB6ODcsNIZxVEIydiXBCSHlDGJqCBOoGiZtVHEeOSKjFMgtPAUh XBJqWtWuGGUxCAPdDR1nVgNqRMChBKF6MCVhKAOgCLJidxRCZSIvDBQeTPv9SDRbHWRnDTEdLYtyNLBs IRBiWUV5BRCzYCZwMP6sVuLwZZLsAVCiWFNyQCSgVN YwnqAYQUPkXBWkCMA2ZERqNNEzSKQgSJgvPKWkEVZlZyh1DDMtLVQjQI8eDlUcRNZoVVG3CFQkDVCaDU IuwyLZRDIbQAH3RDjxXIGsFGWkKQMkTLtvVQPzMRVcFbK1VEOcWEJqKV0nUqLaNCCaAEU6MeCtSTOyRP YdlfNQUXKuKCPsXEK7LaRlISNqWAWoFJjaNPVkIKTq KJWzEZF9MTR5UATsXgVmGFglFEAPBItYD4WmufReEwSAX9hxIj2qCuEmXIXCL7Fkn3PdPORtCFOMXn6+ XsD9CAJ2tXBsOhd9NTSbKsptUVKLUs== ID Date Data Source [id number] 02/19[facility]2020 05:40[facility] [place] [facility] Range Interpretation Code Description Data Zahida rce(s) Supporting Document(s) Leukocytes [#/volume] in Blood by Automated count 8.7 10*3/uL 4.5-13 [facility] Erythrocytes [#/volume] in Blood by Automated count 3.13 10*6/uL 4.6- 6.1 L [facility] Hemoglobin [Mass/volume] in Blood 9.6 g/dL 13.5-18 L [facility] Hematocrit [Volume Fraction] of Blood by Automated count 27.2 % 4 1-53 L [facility] Erythrocyte mean corpuscular volume [Entitic volume] by Auto mated count 86.8 fL 80-96 [facility] Erythrocyte mean corpuscular hemoglobin [Entitic mass] by Automated count 30.8 pg 27-33 [facility] Erythrocyte mean corpuscular hemoglobin concentration [Mass/volume] by Automated count 35.5 g/dL 32.0-[facility] distribution width [Ratio] by Automated count 12.9 % 11.5-14.5 [facility] Platelets [#/volume] in Blood by Automated count 135 10*3/uL 150-400 L [facility] ID Date Data Source [id number] 02/19/2020 05:48:[address] [facility] Name Value Range Interpretation Code Description Data Zahida rce(s) Supporting Document(s) Bicarbonate [Moles/volume] in Serum 27 mmol/L 22-29 [facility] Chloride [Moles/volume] in Serum or Plasma 103 mmol/L 98-107 [facility] Creatinine [Mass/volume] in Serum or Plasma 0.74 mg/dL 0.70-1.20 [facility] Glucose [Mass/volume] in Serum or Plasma 104 mg/dL 70-140 [facility] Potassium [Moles/volume] in Serum or Plasma 3.6 mmol/L 3.4-5.1 [facility] Sodium [Moles/volume] in Serum or Plasma 137 mmol/L 136-145 [facility] Urea nitrogen [Mass/volume] in Serum or Plasma 11 mg/dL 6-20 [facility] Anion gap 3 in Serum or Plasma 7 mmol/L 8-15 L [facility] Osmolality of Serum or Plasma by calculation 283 mosm/kg 275-300 [facility] Creatinine/Urea nitrogen [Mass Ratio] in Serum or Plasma 15 [facility] Calcium [Mass/volume] in Serum or Plasma 7.7 mg/dL 8.6-10.0 L [facility] Glomerular filtration rate/1.73 sq M pre dicted among non-blacks [Volume Rate/Area] in Serum or Plasma by Creatinine-based formula (MDRD) >6 0 [facility] Glomerular filtration rate/1.73 sq M pre dicted among blacks [Volume Rate/Area] in Serum or Plasma by Creatinine-based formula (MDRD) >60 [facility] ID Date Data Source [id number] 02/19/2020 05:48:[address] [facility] Name Value Range Interpretation Code Description Data Zahida rce(s) Supporting Document(s) Magnesium [Mass/volume] in Serum or Plasma 1.9 mg/dL 1.7-2.2 [facility] ID Date Data Source [id number] 02/19/2020 05:48:[address] [facility] Name Value Range Interpretation Code Description Data Zahida rce(s) Supporting Document(s) Phosphate [Mass/volume] in Serum or Plasma 3.6 mg/dL 2.5-4.5 [facility] ID Date Data Source [id number] 02/18/2020 10:37:51 PM [facility] Value Range Interpretation Code Description Data Zahida rce(s) Supporting Document(s) Leukocytes [#/volume] in Blood by Automated count 9.5 10*3/uL 4.5-13 [facility] Erythrocytes [#/volume] in Blood by Automated count 3.52 10*6/uL 4.6- 6.1 L [facility] Hemoglobin [Mass/volume] in Blood 10.9 g/dL 13.5-18 L [facility] Hematocrit [Volume Fraction] of Blood by Automated count 30.9 % 4 1-53 L [facility] Erythrocyte mean corpuscular volume [Entitic volume] by Auto mated count 87.9 fL 80-96 [facility] Erythrocyte mean corpuscular hemoglobin [Entitic mass] by Automated count 30.9 pg 27-33 [facility] Erythrocyte mean corpuscular hemoglobin concentration [Mass/volume] by Automated count 35.1 g/dL 32.0-36.[facility] distribution width [Ratio] by Automated count 12.9 % 11.5-14.5 [facility] Platelets [#/volume] in Blood by Automated count 154 10*3/uL 150-400 [facility] Differential cell count method - Blood [facility] Neutrophils/100 leukocytes in Blood by Automated count 69 % [facility] Lymphocytes/100 leukocytes in Blood by Automated count 19 % [facility] Monocytes/100 leukocytes in Blood by Automated count 8 % [facility] Eosinophils/100 leukocytes in Blood by Automated count 3 % [facility] Basophils/100 leukocytes in Blood by Automated count 1 % [facility] Neutrophils [#/volume] in Blood by Automated count 6.58 10*3/uL 1.8-7 .0 [facility] Lymphocytes [#/volume] in Blood by Automated count 1.85 10*3/uL 1.2-4 .0 [facility] Monocytes [#/volume] in Blood by Automated count 0.79 10*3/uL 0-0.8 [facility] Eosinophils [#/volume] in Blood by Automated count 0.24 10*3/uL 0-0.5 [facility] Basophils [#/volume] in Blood by Automated count 0.06 10*3/uL 0-0.2 [facility] Nucleated erythrocytes/100 leukocytes [Ratio] in Blood by Automated count 0 /100{WBCs} 0-0 [facility] ID Date Data Source [id number] 02/18/2020 10:53:51 PM EDT [facility] Name Value Range Interpretation Code Description Data Zahida rce(s) Supporting Document(s) Bicarbonate [Moles/volume] in Serum 27 mmol/L 22-29 [facility] Chloride [Moles/volume] in Serum or Plasma 100 mmol/L 98-107 [facility] Creatinine [Mass/volume] in Serum or Plasma 0.92 mg/dL 0.70-1.20 [facility] Glucose [Mass/volume] in Serum or Plasma 118 mg/dL 70-140 [facility] Potassium [Moles/volume] in Serum or Plasma 3.7 mmol/L 3.4-5.1 [facility] Hemolyzed Sodium [Moles/volume] in Serum or Plasma 137 mmol/L 136-145 [facility] Urea nitrogen [Mass/volume] in Serum or Plasma 15 mg/dL 6-20 [facility] Anion gap 3 in Serum or Plasma 10 mmol/L 8-15 [facility] Osmolality of Serum or Plasma by calculation 285 mosm/kg 275-300 [facility] Creatinine/Urea nitrogen [Mass Ratio] in Serum or Plasma 16 [facility] Calcium [Mass/volume] in Serum or Plasma 8.1 mg/dL 8.6-10.0 L [facility] Glomerular filtration rate/1.73 sq M pre dicted among non-blacks [Volume Rate/Area] in Serum or Plasma by Creatinine-based formula (MDRD) >6 0 [facility] Glomerular filtration rate/1.73 sq M pre dicted among blacks [Volume Rate/Area] in Serum or Plasma by Creatinine-based formula (MDRD) >60 [facility] ID Date Data Source [id number] 02/18/2020 05:32:42 PM [facility] Name Value Range Interpretation Code Description Data Zahida rce(s) Supporting Document(s) Consultation [facility] [id number]AeVAI7qK5cYZK6RHgODbZfWsYjDLCq [facility] AkVgeKUcMbICCtPynXDvCmJQruOygpeRNsRR0UbJY7FODwN61hRYXaJLXuC0RqMRH2BFF+Cf5CGSKjqE BhOF3UCiyI5Z4agnq8Af0lsb6RAO0TREI1wVnBcOwNHCjLl/JnuwRz6f9+ZECrr1tVZXC5P/271UYd9F 05A5sT3cWHlDv7Y9AsonXLLPZAwDw++5CaqfWpitW7 v/4zTgNxvhR//AfwZkVDoWzaP1zX4DQ3mYqYC+R/Sv/TP44Qqe7oP+TaxPQib/fjzkyDP5uUseu2tqjO 2Gx699X1Qjjtu8NgEzn0lyp+ETKJZaSCj0+iuhwX6aXv2t9qg+9Fyq/3MIj3acQfrn+IJJ1u51IwpX7s Mh4GlgMDLoeW2svnZ9XcxTlelWfa9OtHL/Lesli+Xuts [file] Pxx/xKBPshtKbN4MVsHtVOnzcuFoL8jpKkeWdRcJt8J9lFbPE0kq2mh0/QtlA/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 Name Value Range Interpretation Code Description Data Source(s) WEIGHT RECORDED 186.9 lb 186.9 lb [facility] Body height Measured 70 in 70 in [facility] Patient Treatment Plan of Care Planned Activity Planned Date Details Description Data Source (s) Ergocalciferol [id number] UNT Oral Capsule 02/25/2020 12:00:[address] [facility] Oxycodone Hydrochloride 5 MG Oral Tablet 02/20/2020 12:00:[address] [facility] Methocarbamol 500 MG Oral Tablet 02/20/2020 12:00:[address] [facility] gabapentin 300 MG Oral Capsule 02/20/2020 12:00:[address] [facility] 0.3 ML Enoxaparin sodium 100 MG/ML Prefilled Syringe 12:00:[address] [facility] Docusate Sodium 100 MG Oral Capsule 02/20/2020 12:00:[address] [facility] Acetaminophen 325 MG Oral Tablet 02/20/2020 12:00:[address] [facility] Cholecalciferol 1000 UNT Oral Tablet 02/20/2020 12:00:[address] [facility] Calcium Citrate 950 MG Oral Tablet 02/20/2020 12:00:[address] [facility] Ascorbic Acid 500 MG Oral Tablet 02/20/2020 12:00:[address] [facility] Oxycodone Hydrochloride 5 MG Oral Tablet 02/19/2020 12:00:[address] [facility] Methocarbamol 500 MG Oral Tablet 02/19/2020 12:00:[address] [facility] gabapentin 300 MG Oral Capsule 02/19/2020 12:00:[address] [facility] 0.3 ML Enoxaparin sodium 100 MG/ML Prefilled Syringe 020 12:00:[address] [facility] Docusate Sodium 100 MG Oral Capsule 02/19/2020 12:00:[address] [facility] Acetaminophen 325 MG Oral Tablet 02/19/2020 12:00:[address] [facility] Oxycodone Hydrochloride 5 MG Oral Tablet 02/18/2020 08:49:[address] [facility] 24 HR Nicotine 0.583 MG/HR Transdermal Patch 02/18/2020 03:00:[address] [facility] ondansetron (ZOFRAN) injection 4 mg 02/17/2020 04:42:[address] [facility] fentaNYL (SUBLIMAZE) 100 MCG/2ML (PF) injection 02/17/2020 02:54:[address] [facility]
--- OUTSIDE RECORDS SUMMARY | 2020-07-05 18:07 | CCD ---
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 BhcmVudCAyMyAwIFINCj4+TZfllzVoYdzZFpW0IJVwt0NyWPk4OR8TLISfZYlnQZ3ODDQptO4nYZuzLN 0DHiIuEEGyZIGSLhXbQ64wrFJmZUl1L0FnJiXlBUAr RmlsZXMgPDwvTmFtZXMgWyBdDQogID4+ID4+ZXqhKN8BBXqpbfFuLTIeEu2EITJcHOYyNW4qAGKjDXQk N7A2vPapQCODJkViR4omgpquQM3bMHOtC729nSfoqjBiFMKkTAVhWm0RTGDnIRY7MBBudHFrWhVkMNQI TFjvDW0McTHnIYO8cE0oTJnpCHRjAQXjM1zDZgMmlP jzJS94zXypxlIatANzXEd+Jt1QVB2rp4XiARv5vcDoWTqbVEB0LSvhZRUjKHZuUDEcAHH2XRP6HGNWPf LqMUGoUWNoUHsbEJToPVLklk4IIDIrKHKyBmE8BgIpZAItYLCaBEmoAYMqPRF2SkmdHEWgYNOiRT2BDt RaRGYtBSMsHChpENMoZEQnbx3ANQOcEIKrHkGlIGFy YVWqXHQtOGdnFGMhWXShGRR5VTBxQBEuLR3OYtEoVMXcBYQxMOarBUCvSRBpkm6EBQXhEZOnLcE0DhMp WAXtGJYzFOrzQJKtXWU8HQq0OKVpPLHnBQ8LEfUyFYPnBCqvBHIrENLoYPXytz3YLRVgLBXwYJV7CJNc JXKsBJSbFOktNMJpQRO8GuW1IBAgGVDiCA4YXuPgRZ TkUSm1AuLaLSYqGBHfel2HJHGyYDAzQRP3BIQeVRSeNPYaFNarKRTzHKFuMycqXKXzBYFdBT3ZCcMpWO TzYIY2CbinOEKtJGGamu4MIUGyWVNuVIilDEErXRSkLZRzFXvpOQTsQJL4HSMhGXAzDCZbIN2VAdUjPE KyFIDiRyZkUZMmNMCwzx3JWHYxCCEsPfXrPMOcPJHx ZSToGLqnZOScJSA4YaUsJLHaRCQsWR7WNaKlUDWnDAqsMQRdEOFpGPIjta3RWIWoWEAzTDWzGrCrNKSf XFOaFPspFQZaXKD0LLhrJFGsNMDgGK5ELhVyCKYcSJh0JyLoNMDwDXQjkf3UuPAdwBhgut5YJHrTXo3G tEelJIZ4BHqbWe6qdBBgQVSoEHTCAr2MyiGmFDBdXL COMQaqOMWtIKKyK9FpDdZeTHJuH5T6VUVdEql0KKO7NaWcDQZsSPWiFgX2PDV9LlHuNUDoAoCfMqzxBG ArVvH5XFseBcM3AnSkCjD+ZV1oWRm+Cy5Pn0PfuaT4kxIoTXchDSy9ME2LAKDGH5RBRo== ID Date Data Source [id number] 02/24/2020 08:27:41 PM EDT [facility] Name Value Range Interpretation Code Description Data Zahida e(s) Supporting Document(s) History and [facility] RVJGNy3iMvYVFkTk81/TSWlrXUVkj2EaKQtaQTi3LOqrMZCnZ3UoZNF2oP2eIXT0GNuOGiKzGyZiXKG2 lbm [file] 6eIYVQTb7+QJegrFFkwNxqLJXABkB2LUTfJZmbLQUKXr5B ID Date Data Source [id number] 02/20/2020 08:11:53 PM EDT [facility] Name Value Range Interpretation Code Description Data Zahida rce(s) Supporting Document(s) ED Provider Note [facility] RHUKXt6fLfFBLoYy27/NTGgiLJCyi1ShBDeeACw5JIbwXMMtS8RfHNO0bT4nIZX8PSkLIuHfQqIfSEQ6 lbm [file] YfUmBzFgAX0UIl7JEqI3HED5uKArEp0HNqj5ZMePXoAmBZ9LJEm= ID Date Data Source [id number] 02/20/2020 08:39:15 AM T [facility] Name Value Range Interpretation Code Description Data Zahida rce(s) Supporting Document(s) [facility] SXAYXy0aNrNTUfYyb6JfHaYpEROoMI1fuhr5N9V7gQKgD4GdtXOyk6nkP8YyO2AqTBYbWGTJCC9QbKUj jb2 [file] 7xv/73x2++/OUvP//220+f//LvPr76+d99/Pzzr7/89MuPf/6mCw3b43369Q2b30bpq4GQ99K5Kfq23w cTm1QeHUN1V6k+hz/89L/9pyo3L47xwK9iB20kmQ0Z12y38bb/t6Iy24ye+sqg77sk4RS5e3mreav4hg 2T9v4f1W04ZLIuHb090/eioVJasn2Qaw/8xw9//nNU 1mcfH//z868+/98UvfvbqHG/PWt/+L2v5Z/sfWa/v1a3/OcAe8XB/9ezi2yiwp+RjaGXBzb9e 9zc//PEvf//x59/+6Td956++gB/Ih7N/9If/+vHZD/Z6hh+f/YC/+vbjd3/8yw9//r9/+/v/7kYsGm9V X3pfY3xmy2g/2D99+93Hv/9fr3v/3Z/++KBJZnr5K5 6ta3vXE22/03/6/z4Ot41RVTM31U+shX0gH8P1piTAwC+6+YrK6QwOdkgh5z61Zyh46Q++/cn3H7/9f3 74r79+ebJRO9/+V8d+vX7r43//+V//9ke/Ew5a3T4//9a+0b420f//+cOff/S/k3lJ18b//vh/79vyPL //X3/6x4r4nd8Sj/6e8F1Dag/6yXnWX/0u2g2ejx+5 tFuN4LGe//Bv//nH3/4e8415s22+yo6v6j/0niu84Km/9ZdXh/q2x423u663c6++3XlcNzhBvHHffPXV p6+//+5wqtwgSDq1//vJntnYx+Cw+qvf/h8/fJSPP/0Bb11e6Z39z4oEy5hAmTNrS921+ftp7BJZeK/6 Xjfy592/+vazCPXcugDz4/MvvngNyq/u3w044MEK3t 37/xg9CCoVMvNjGHC1arRyiXttntKnQmcUOVrhEDAoJjy2LQ2DaYVqXTPrX1N1NYJsel6tKQPkOSPeyQ OiPaRqLYSHGW6DtFKwYJ9SSLq8CVGhXCSaBmGvAOBwgfP9PUYhFEDqYJGqI4FktsKgwVQhFBCuJw6+ZW 6pu3KlZaEmPEHbQzf3PL3RcENuOK8GqJSelF8wkbXf G786plWeAIPvGtdqm4VeEQzgMYDXJC7ZKIN1NVK8VXIkDy0+IG9us9JzDlBhPLKhNhz6YV7WpMNuy5Qo RB5AG0IoOCDiJJESZZF3m9ObLRKpplclfnxgF5HnTGL0jT1gHMV6DROtOTrgHKWeZJwzIRH4UcaqLCfl LLSbMHYgVSMeVYWdLYl9iYJyMA3KK0UuKIGyHXWTJA SkasEbZw3tYSwUBD4ZJUydVyVTEV2GCDlaKls7AcF9HmlsO5G4RozoB8WkOS3ST4VpCMDrWRYPTXFasu RkQM2ZoeGjpN9vPTwJXDYIFQuACPecYgY1c96cuuDSOESaFYHrBDttUHDuIAGyTJRiNUBbGGIeOMLhOE ScUV0QJ2ZpDPOqWXNQDGL7d2PeGEAqzjuiuppdUu9a bmRvYmo+ExowSQIrb1ZzSRdbD3U0jPNsO6PhT8BeIS4ZtAIzWZgpLQLlBKZxEAIcO410wsNlXQ9+ZW5k g8FpRxcmZBJSDLOoHQJiUUEnODP9WbLwIECqTMMiUPMwEaA5LtIrCwSMQSJdCRH7GAO5EkMxDHSvYEXu TFdmPTMkSUkqMTH2TAPpLNOpHG1bGmJiYHBfHlP3Hq ZjIEUuCPPfcjQOJDOgRZHoNNYtXCV3QGOqMSBpGSjfXWMbYNNyIAP3ZBXlOUWdGC8mPhChLVEoMKBxWt lxCOWbYNRqmgBHDLHdJYDdGOT4QvIoNTCxSBOhHEtsRUYdZCRrGlp1ZIXuWXJmXZ0oZzWtIPGlLUM8XA kgMDAwMDAgbiAKMDAwMDAwMDUyMyAwMDAwMCBuIAow FKRmGSFgTdDwJPEuBCEaYP5aWnIdOHKeHWW2DLTsFSGgYPDwknSGNHZdJRUkRDx7VOFiWKBhLKTaOCex GCFgHCJnBIC6RYAzMYMfZH8ySzFyWSNlNAMfZJEcHOOuVAEcgmHBPPByEOJuWQY7SYKzAOFiYHNiTVsx DUInVOLwUam9ZWOoFPFfTB9uOcCqLHNsZWH1NTVgZO RjLXXudqDDLIMmNCI5BxkkRcAoFYRgEOBxDBjoMKWoKTVsTzO0CYQyNUDnSZ5yUfGbKLPpJZL8WcPdSR MjUTMablIHZZWtRTAiIVQ6MmPqHCWoDVKrZCpbEEWfAVMwERFwCRZ6IER9JHWwXaGsWMwbWJDODTcVW1 UhsnWgGwZMG0uiWq4uRzJuKWUQJ5Brs5IsHONgDRDMQh1+BfX8RER8aTXjNjo1OIB8QBthNGIAZr== ID Date Data Source [id number] 02/20/2020 12:32:57 AM EDT [facility] XR CHEST FRONTAL ONLY [id number] RESULTI nterpreted by:MARY ClintonROCEDURE INFORMATION: Exam: XR Chest, 1 View Exam date and time: 02/20/2020 12:28 AM Age: 19 years old Clinical indication: Illness, unspecified; Fall (on) (from) other stairs and steps, initial encounter; Other: Chest pain TECHNIQUE: Imaging protocol: XR of the chest Views: 1 view. COMPARISON: CT THORAX WITH CONTRAST [id number] 02/17/2020 2:03 PM FINDINGS: Lungs: Unremarkable. No [...] rce(s) Supporting Document(s) ID Date Data Source [id number] 02/19/2020 08:16:58 PM EDT [facility] Service Cmnt XXX-Imp : [employer] XXX Cult : 2019 nCoV Real-Time RT- PCR: NOT DETECTEDTest performed using itravel Respiratory Panel. This test is only for use under Food and Drug Administration's Emergency Use Authorization.Additional information is available on the following FDA websites for health care providers and patients. https://www.fda.gov/media/828336/download , https://www.fda.go v/media/611628/downloadPolymerase chain reaction is NEGATIVE for Influenza A H1, H3 and 2009 H1 viruses, Influenza B virus, Respiratory syncytial virus, Human metapneumovirus, Parainfluenza virus 1,2,3 and 4, Adenovirus, Rhinovirus/ Enterovirus, Coronavirus HKU1, NL63, OC43 and 229E, Bordetella pertussis, B. parapertussis, Mycoplasma pneumoniae and Chlamydia pneumoniae. Name Value Range Interpretation Code Description Data Zahida rce(s) Supporting Document(s) ID Date Data Source [id number] [facility] [employer] XXX Cult : 2019 nCoV Real-Time RT- PCR: NOT DETECTEDTest performed using itravel Respiratory Panel. This test is only for use under Food and Drug Administration's Emergency Use Authorization.Additional information is available on the following FDA websites for health care providers and patients. https://www.fda.gov/media/726734/download , https://www.fda.go v/media/832245/downloadPolymerase chain reaction is NEGATIVE for Influenza A H1, H3 and 2009 H1 viruses, Influenza B virus, Respiratory syncytial virus, Human metapneumovirus, Parainfluenza virus 1,2,3 and 4, Adenovirus, Rhinovirus/ Enterovirus, Coronavirus HKU1, NL63, OC43 and 229E, Bordetella pertussis, B. parapertussis, Mycoplasma pneumoniae and Chlamydia pneumoniae. Name Value Range Interpretation Code Description Data Zahida rce(s) Supporting Document(s) Microorganism identified in Unspecified specimen by [facility] This lab was ordered by [facility] and reported by [facility]. ID Date Data Source [id number] [facility]/19/2020 [facility] Name Value Range Interpretation Code Description Data Zahida rce(s) Supporting Document(s) [facility] OYMZEo5lXcWSDiOoe8XvCnRdNTLmBE5lipo1O7T0qABcB2ZqiQTqt0lvF6LeO9BmTSEbREWIHM6QeVYi jb2 [file] +zcWfMvY/3xV9/gB798X3Rs/+s5o+g7wEpYr15A/qP/8O/abdirashid/93+77d1xdn7hp3b1z/f+vc/nvtDia0z vjPyN3/6/v1E5d1/+k4/POmUrp+T7F8Jva+NgK7jv/ ZHz/bh+3/yF2ClO73mM1tsqox6k54w0w/ZKyuF6bu+Ei74A07qe/vt5/8t3HI0HKchn4/0mrP17Ma9j5 I7RK6oP6GzV1G79tZIFL7O+SG9vRz6V5zZ4eT8yrSLiElIw08R+m+g/wb6b+jrKq5Gg9l8vLtnUa9Tln dFs6SowkG8Ql8KtgLpz0IaK6u1lNk2ohjO3pV22O7t +j9dx3eqg4+WnD/jHdzz4d4/zF56hS9a/d103q7aSa5y98wQ0gYlkC/4jiGfYegeo/8hu227l6p/PV5o A5jmsIh1gH6Ta3b6qM75a1W75Xfjo66q0p0N5VidoV+4K1bH7cietj+Vjkk0Htd3aQ+Ydmpb365vUpyh 9yZN96awRl+h18wH3a39mpWJp9P1jY9grnV8xe6n/9 zr+u2GP2/39dxZtr4Rs1/pdglgt3t2/17/lI/nfU/1+C3Ca3c1M9caFxS+0D6+/n+wddCuj6r1e7uVtt C+8k9se723l4yTr6oXunI2x77B2pRa8G7M8dLtoL/+qAkE0wHxM0om1virF4pun+1rN3+iGc2RO6lw/B 5h1fZM9+z8m66791h/2jFo0FjC31r4kUue7ViZZ2Es 9/uTMie51HnFfzEwjk/6vsen/fxG/EoldeJXqqg7/KgqcM1pr0BIrdC0t5Jv7Q8S4uQ+3J4cVn2tXsdu dVGts9NxwgYCG/mEnfruPkjHO0TFZz+5KR02yw3kOzaEz/mFC97Jd79rU0T973ew+hyR0hcqH1w16tyy A9e/4OSPRx0w1s0qLWt/cvArB7/x3Xg11cfuh1677g AbF7/QH3U7gb1X8ntbmA5nTxxxP4EpFa4gHCc4up0YlW+8D0SGuY+7O4AeyQ/ySh6q5RP9U/Shol73wf /HzlIjl4UkPiX21/BpVYlCz4uFE/Yk8T2BnbobOb43lsonpq0+viKdM9knjWuED8f2C1NrHj+1N/nJh1 /2LQ987U82ZZXp6zcrFACGNqoJYIGRwTdvjxj049yk 3T6/00bc3Qc/f1omxLOlmNdtOXa0FsBSP25N6F2FbO97Xj3CTl47FX//2YmzX3ft7OkmomzfJ78L7qnP cy0tMzmXn2+P0haRGo9oiqQONyP+Zxn9f9Oo9cUfatNFd954zjlF1qvhbuCM+0A73u+auO/KwLbb9i7U /rzgzxv+vB+3S85XxNa0wPgwM8nXr3tYi2p4+u+GP2 /03z2u/vu7zNv5kynD0k43Zm+y7ny8k5f0Ws/7qby+x9/p99Bg57V9D9P4sCanF78X8+3zkA1LPgW+0K 7+j9dlk30iV9nP+rx86DlEJ86bdS/BX3Be2x3wU/paBEK1J9xTr0q5M9m3+SdOoiZ8Fo5C8QONDwxDEp t8stlC+0L7/t885KvswxFqf65Nygk3wOgeM0tf3yts D4cQ7DP3vXwq1qehnD1ycBH+1U5goyC20/Z2+XHfU1oV8Zww62250PI+TxmT5Y2dIj6e8JHpX+6L99sG 3nQko36K+qwr33Qxs73p+icv94PfN8N87j2qOf5Q6P0vCm0Mq6DnRu033U0r8i9A08q74NplO0YixL/5 jVMXfY/Zqmb4vNqdEq7gc+HR7fjoH+3y0qClsbbN7i C6gYteW3sW7Utsk+xrn0D/HXd+45RAJ/c+DnONaR2WmLM8S/+c3/pT/gn436Q/DkqEhT6Y4au+lfXWN1 44lc/0DG2cCr0/2Q2NTrJ+6S09CXhHdeGaXb5whh+SLpq/ymPoO+98Tps3/m0T/hz4ogqKz/3njRdOmf T0hVk2Fe95kit+R/SgJ3qH82jX6hJ9vg+loretta/y+P5+ 7soOnu40T3ox/V34/sil1CjgY/kWnyzb63twV05csUDDC65KdJ5uD1tvD77XqR+8TSr57GjZ8w0e89lj 0Bq2jBOSk0Di1g4bb3r//KrtjvZ+j6z0jdyFbP974/ycgnnniMteU67rF4xcA6ep6Mh0lb+6uqaubq3u 7M/iY94gX2v5oF/efuqVp/O5QerrlMiqM/FCy+t84o U+mu7dZkmYwsNGFFYWsMXxDS/a5E+9jX9EP61ypa5mXKq+Eaox5IZ+5YcKwzdF1/syb4kF7q/tkAJ6Vk +p33/ij1w2RekicRk0yij1TcvIri1+tMoH6VaE0jAnS/1kba7qc/t+u11/8cQqM6Gx42z3Bhu1i53i1y +61gfz+Phz/ug5z8w7TV8I71owW2apU+peWh/UuVof 4EX5Thoxld/f+Ye1Bdn9chvh9TtRd3YiuC14oe8L6KZtP+0Y0Fqc4EwOf7uhc16a/eufoo1M7rrjjNl7 kTy77QOxx8/wcpouCl6uQ0SV/B9nAoXxM+5D7AltZo27Eef0QI2XsoT4e31KOt/fHy46Rt+/871w49k4 3/Wj3u/2Lc37Iyrok6rM1u3VclDnGr/1fufbO/hVB7 /q4Fcd/LhDV7Tuko9Q3V9ihv+cRcP8Aa8e1wkY5tW4Jl+vMgJ92h0R4l/qmg9bWm1saQ1Ms/u4/LmPB+ 7PqxS5k94P5eEt0C8FOo1D1Y5Yr1m5qW+7XtbHnW/r1xke6Fc/eo/RvtG+q6d93MkAatI9vr2S8rewtz e9rM+7vtDnXV/ww4J9oqP6Bx+aG9gbhN5Pgvx+6pq/ ynPxfjV/ofde4Cu/50It546evMS6Iinaogw28B3B4l/C+114vwvvd+I5Gwq97Y2agP96Dfs5mB+Cvgv6 Lui7oe+Pjngh4Tai8979k/QA5U3pgt4W0/pgqL1/eXvX+sD2opARh1t9donf86LUAjz7LheD+hZ2lmfZ dmU5/Erzlqfc9+2W6F49h4ipyxXdK+z6z2Qpw9qmuN 1w6/gvv6CUW0Odbo8vo9wmqJEpW8eV8+WrtnUSwUB7tCYkQ2XHn2MKInAv1B6uUO4VxR1A0lagjm35bg tehd31/bCbnxPiV+6t4o1dy7vVnL+M8znv2DBFVCu9QjKd4lR7H8CEdH+1Y8InjP+5t0QmcAIP/Kut4+ /3MZB/Nursing Home/BoXv5lwpAh2A3Q3bKf6H5nP2GKdY+0T7 OY9H7AoQssVvPA0APq0dkwAsgw+h+Gp9Vac9F6dn728gHX/sF5ex3mV8GJ+VRbYffbdse/FsdM7sdgN/ BtZy0fMwtB0B9tItHWF/8vR9cT68sZvXlbh8Gq1a8N+9x/UUURi40s+TyNqabFOpN3r5095Yqr5uiWDk Ll4Cc4880Zqye0Qs5rdnQWG2I/xbGy6a6xD/pT7bb/ 2Q7KiaK/8S6mZ4CzDj47afH95iyp0L7luK+VeB/KtA/lUg/eeAfcF2UwglL+2F0X2wfUNOqrrlZVKkhQ FdNEGi0XXWwOE9tBjwu/yriMsnI/OvdIz+G/FognDOWeajF0Qh7o4j2CcuudCy7c/6QiD/KrA+GAP6Du g7oO+Y+D3GK+IbjhI9HyOxpX5U31N28oGTY9bc9hKr aG9oR/+k3PnsV2J9c6H9LHlAlbMl93xjxuRn/Tri/uo9/sYFMW9+JjzfN2W48/shfpXHhnZD+99VVr98 9gC/EcBbCC9B8HhXcciuw9tTY8f9/DnWjRcC+VexLn+VytgclV59v02mY/4cG+GsTiAgoK27erC2le+J 2iAw8E9svYrkD6K4iA1U6rX3vT/pP4FY1g62I/TdV9 /tCT3X46Dq7R0tw4W96stsW5k79aihB+6O0cV0lvhS0im9akjA4b859AiH77MjYV+DvuJXqq+xy5+H+N D9pUgDujwd2Wmsa7Qc6U6I1D8P1S5OdA8TrD3T4J4Ah/lmw2++5jEA6EJ6O4fk8fRz5F4pF8jc/Wp9UL kzcyEmEs9bjqJ9ZOk9jBSCelYETJd11xdL86WXHge+ 8cXQ+uBW+/7y/1PnmvHFKXPNGOFUuWbscIpc/83SeyXpD74tpKg3P3C5dUu51mpkB/Y83x6ml/HR0Pqg 9GrQV+uDJwYZWh+U3bQ+QDxxyHQQGKPPKc6j1l1r/lk7ogtrkxxsn/53EM379D94ucJ6Bu/re0E7OONl an0wj+t7hsZ6nL4tmbB9nn1TZ71+1/sV1MS5OJ/Mily [file] n6gN+jennifer/XhrmsSwUqnbIo7ZuHzV4KxOz8+zH0tl+FwARGOiMugr8QYK7fKjcjL8F5jsvz73EN1+LFX/ dOhsa/UmcQ112YpkxaZTv9cEV15+1a1TWUH0neSTT3 ZXZVyIxcqtQvxRSdSe/B2tHg18mJU5O2/nbYR+3lbTugs8AYN6ToqSnR8+LNWrTHvyE/xnT2BQ19GOL0 xaM/uxXFn/VD+WCoggP+vH8zvpr5XPVOTccXwP/Viqast+LMcw/Vl6GM0mIMZ5nUKP7oVuLK33zT7+Yp wcWf3Fu6Nn5r66QV72YGIwXlRLZJSVgQNpMXdO2Ysu +onaoZ+bEwfK5pKuzN88lmskf2qe+qkdxH5Ftz6PRvJERZmHuYusgzdPbx+gXr0fQy4GG/QTtUM/UTv0 Y9TMG4B63MH6Ly4VC/TMbveFHILX6P/vVFKAcGA6CA/cGZzNHCZEUYIEw32u5UvTWtjMG+1c/Dcr3o1w jBtN1mcvtxj+NYCAyJBzK1alDDvTwF3PA9aFZRaaZ0 3UaQe26lnxtQSxsdczxqR77mRxbejE2ZgHiu1bTDPxRVr5wYHYsxVn2eMNGIkDpSfBYgcgOEygRfvLcH Mus6HgIIornOeWECZdsK8gP9sqbhK9oS4WyDlL5MiFt+UxBpGjHajZj+PKGDiWLdS9C0gX9bQG0HXO5j 7QDT8AJxVDcHAupXcWRMMZbKYUIgApIcUYWMGZDPO7 dugnap+BsGDDLdDvNUIIIEeYHMZBxuMSsLMdJOYrUUqZvVjGijPfIsSqpOyH3JxJFIwV87VrQB0/V81+ LI+gLEMVF6UAyDFyaTWhGi0NaP1YLjg3dT78MynKCR5vQfcY60Z85U100zFbXYRLIyEvvUbo8er8Lhkz HbEn9XJcTI81rjAG19eQ/M7R2W2JIn1t7btWMKrfpt E/ZaYrf4VRGqVA4P/uZGyZ8VWDgZ+vPf0OMmfowkC/HI01cRa6WO1ITMkFHEdCehQHCTTIMQpOqyAMBU N+mjv0E6Q2mvMODkAqsPF2F5Haj4gP/UR21SxzSI8USecMgvHXLFJ+bux7V6Jde0xF/GL43TuhYX6WEW kOoJ+o1Y/zKEljusV1wjSoe/tKNv2YRsIlwcwG6JkU ynLKx0ZGaBq2DA4q9Inebg9PSh3uF4z9u4TLUHQkz86+QKlbVEVwQ2NF9+tMuitC2W+bvnoc2DMc4vNy /RmKJHHmD3ylnBa8DjiV1oRhWWrIOb+nGct0hl5Y5DMFvx/4oQhHGAFn9JD76A6fSyjWeMiH3/qfu26c V/8Tt4Ys3J6xbk03+bRdCPfOgwGxe6TwqMUg5wRvF2 2IZT+UQrzeB9tHVDt72KbNjRfQ1vZO21WY+NlVkeLGc2ewFqs9wGI+rfSjyLNmFqcFSb6kuF2z8Wlh+Y fCmbCXv4muIkm0hKI+Darryl/PK97qGbFTHar7DcRNwvCQWee2CkMUlkYHPczduyS7rbHzVAneBUcod6vhx WIzbx9T9iMiDRd5BjRK09sqvfiMS0ApkZ8R4qIR2HL nIgTGUQGkYnROybPYPHcsLYv+2EdzihjNKX5Ty+WYxBpRBoRjoPJcTDx/kY7fyLupwJrdU1b7bfTLwWF DKHPDWMAev6oudEP/ktcufURDu5sWWy00iALv/whfEFX1UXIdNKbLc0f2HtJOzcjJRP/5yxXQTERUx8z 8eHjCV94gqDU26g7zc+aX2zoIOcd1dCpHjfMTr9wf2 /oF+ZY/QMdv55ANPX1ipNNw/Orz2+xliVoQZ//3i5qkjkuz/f2+f96+/w0byFYIKTf9rx/fFwc7t5//r e3//4u71pggvesY/xhSJyev/zq11+7LQp8zw3D3G8LQ163at8+fv+L4G++fh6/uOYXbfDvX2+uib//4c dv//ntx+9/+Fba06b9bl4++volC2s66vD0K/3246cf vvr8z7+bD86pr6+++/HzV99+sKo58lQxdq8+0rTLB2rmY3b6b/lgrN5TaMbCiwHpyh5cf6bYX675mQ3/ +eHTr7/68Ff+0d4Bhfx42eefmpg+64+vc/r01T/82fZan3722thue4r73vhL7458m2lvqw4tc//49v2H z58/fvr2r+xG6uK++/ybj5/+j69++Kn99Bglwekb1P cv/+Vhwu94WMeuy/vd2/vcDu90q+9e5/n6yx/sUdi2y7pfr/jV1x//yj/aycN1J1/+6Y///vs//+Gnf3 v7H//n5HecvhpJ4uG/+8eP/+3thw//+Pmr10n++sPbv/ytt3/5u7c//fFt/bI0Ym2EzFyce/O6FR+++S /BuARF212A/vCHX/1yM42uVKrjD/vX1yXc29MNRRw/ fvO/NBcB18Bs12+/68WIYrda7/nU0xgonpyOuFOoBZ7Q2MxNWW75gz5z4Liq/8Gnn/79pz//HcF8ghpp 4v/57Zsvv/gd93mUYaym9m3apt+6/wnzYqRtu8aj4fIkooT2VeeaLZnZ5yPJ+eEBf/vTH//y929//t1f fnq3+2bB92fU4Mx/9If//AozOea5m+x9g99/evv9H/ /y05//n9/9x1/Z/Q7o+53xck1F4k/Z+8b+6dMPb//2f7/O/fd/+fFSzn3ami/vnk3kun7k0n//6fO/An /4cpeama9gguWcc1xTZdxJbztV1sHDy6WpzHDkHfleP/Zg3//i0y8+v/3u//3pP//uk0Kfiux17EEf/+ KyKj69dw//y9/97K/3ffjmd//x7v6ud+h3f/mfP/35 Z/+7ozyu3//x5//9GGaX6W//47/+7xO+T3/60x++uFei95/9yb7Wr//8o93JrvKDPhhW7LF///Sv//OP v//X3//uj1+3prKg10irk5f4Uu/4z7hv5o81Q0T3Y//home service consultant//yGnj/9sVffxPHCUROEI/uc7618/Hbzz98 wQf+/q37//+Ln7HKg2Ug2y1/93/+9CZvf/x6M063jt fV8+J4e/h3kcM1p/c7236d4Yuw0Mcpg+y7T7/++AwUcKgvI421YmZ+fPnldz9++/rbdos/eSBA6qq8/w BBvdXVIfQqUMC5njLgzAfyolQpXgtLEBqiDJPrWrh7MB1MbMNbKZIxI0C9SVHcdk4kELVkJJTvoDWsHl NwUQUPEH0KzRKaOP7VHQk2KMHxJMMuSxZwEGJkurL6 IEXkGFGoKLJlD9LomcEliQAtNXNuWe2+AG4an3IcXaEhOSCuGem0RW9NyHNbNP6KbEFbyR7apgDpE055 joVyFTQsLphkz4TqAFyfJDBWLP0BWJO3MAR1JIJyFk9+WS0rz3XxHvNcNMCiMlu6IB8HnTBok1EbNJ4A O3QqDWEuQQMYQGQ6e1AvUCJmwmijhqbjH0SoABD1rL 1wAOT5QKPjSRhcSLYkSIzeLlDdOaZtSOqoVGAfXFYdXIOpAUYmVEm0gKHkSA6PC7LgKIGbUGWHIZLsum SwLd3jJHjAQE1DFBitQlBWNT8SOEdaBdc0IjM4XmtyC9D2UogcG8PiPU6QL3PdZLCcSCHLWHLytsYzAR 8QkoNgdF6qLVsXXEJAMIjTSPssHcE1n67bvhSSIKUo GPDeJPjwWRTkVCCpYKJwPSHxUMYaWGIcATXdLZ1NE7QxRDWeVDXCPCF2p2IpTPOzbnsmemtiXl0nbyZx Ymo+PuksNMKtc2ZxISrkJ2L8yKZvQ7MtS0EdWZ8WdPZoANhaHXTfAJGkTDBkT542dvKfFO4+UB9cc3Ja NwerSVVMZKIcHZVeIHMeVWS4AiFcRWCqARJwGQWeVi W5RnSkQfCLYDGeTRE5VZA7KIXgFPBzIVTtPEdiCWTtLCeyQNR6PDEnZVYeCS8xStLmTDLqGzUyTLEgER SvHZOoryMQSBTrFWLqTIVeRUM3CZStOZMbPLbuPCYgEEXuTFV2ETCcSOQeVY0iFqTwPDUdTESmIzdhEV KjAFSdbyDIHFKbFKRrFSE6YfWaNELpHGAhJOuqVDHe KZYgUrq6FJGeLCAgTM7kVnDiRXZnCDP3NJmvBUUeGKVrlqRTHYCaZYFhUCRvGlGgGCPcAGEdGKxeNSVe NKUfFqArPJKwDWZpGP5mHjIqJEGxDRB2RXEmNGMcXQJtqnOHWUNtEFQjRTl0HAQdOZMkZTCsLJoqBTZg IBJjGOA9GFAyUEFiHZ8pMmInCHHwOOYmRAByEBPwCU CzahGWACGbVQCkBMC2TEBqIRFzUGYcCNevDRKoJRXlIle6NPQfXYWzSB9eBlRiVPBbEHB6EYUxXTYjDW BionJNTLRdXRB3PBonFLSlZUElBVUdBRsqRULiHVVcBvS8XGNiOJRoYJ5xFoXlNJShXHL7YmStTODvXN UwayKGOYMjIJFuTAB4AvKuVFHlJMQoFHddXXVpGWUr ZFOmERM1BDI0FJTuXjGnGGazQGOBBWrJV5UdqnFgJaACV8kcCz3zTpMdDZTHL1Krz6AfEBIaDSSXAn4+ NgF7PAV7hNFfAvs1LTXsIdejJPLGRd== ID Date Data Source [id number] 02/19/2020 05:40:58 AM EDT [facility] Name Value Range Interpretation Code Description Data Zahida rce(s) Supporting Document(s) Leukocytes [#/volume] in Blood by Automated count 8.7 10*3/uL 4.5-13 [facility] Erythrocytes [#/volume] in Blood by Automated count 3.13 10*6/uL 4.6- 6.1 L [facility] Hemoglobin [Mass/volume] in Blood 9.6 g/dL 13.5-18 L [facility] Hematocrit [Volume Fraction] of Blood by Automated count 27.2 % 4 1-53 L [facility] Erythrocyte mean corpuscular volume [Entitic volume] by Auto mated count 86.8 fL 80-96 [facility] Erythrocyte mean corpuscular hemoglobin [Entitic mass] by Automated count 30.8 pg 27-33 [facility] Erythrocyte mean corpuscular hemoglobin concentration [Mass/volume] by Autom[facility] 35.5 g/dL [facility]0-[facility] [Ratio] by Automated count 12.9 % 11.5-14.5 [facility] Platelets [#/volume] in Blood by Automated count 135 10*3/uL 150-400 L [facility] ID Date Data Source [id number] 02/19/2020 05:48:[address] [facility] Name Value Range Interpretation Code Description Data Zahida rce(s) Supporting Document(s) Bicarbonate [Moles/volume] in Serum 27 mmol/L 22-29 [facility] Chloride [Moles/volume] in Serum or Plasma 103 mmol/L 98-107 [facility] Creatinine [Mass/volume] in Serum or Plasma 0.74 mg/dL 0.70-1.20 [facility] Glucose [Mass/volume] in Serum or Plasma 104 mg/dL 70-140 [facility] Potassium [Moles/volume] in Serum or Plasma 3.6 mmol/L 3.4-5.1 [facility] Sodium [Moles/volume] in Serum or Plasma 137 mmol/L 136-145 [facility] Urea nitrogen [Mass/volume] in Serum or Plasma 11 mg/dL 6-20 [facility] Anion gap 3 in Serum or Plasma 7 mmol/L 8-15 L [facility] Osmolality of Serum or Plasma by calculation 283 mosm/kg 275-300 [facility] Creatinine/Urea nitrogen [Mass Ratio] in Serum or Plasma 15 [facility] Calcium [Mass/volume] in Serum or Plasma 7.7 mg/dL 8.6-10.0 L [facility] Glomerular filtration rate/1.73 sq M pre dicted among non-blacks [Volume Rate/Area] in Serum or Plasma by Creatinine-based formula (MDRD) >6 0 [facility] Glomerular filtration rate/1.73 sq M pre dicted among blacks [Volume Rate/Area] in Serum or Plasma by Creatinine-based formula (MDRD) >60 [facility] ID Date Data Source [id number] 02/19/2020 05:48:[address] [facility] Name Value Range Interpretation Code Description Data Zahida rce(s) Supporting Document(s) Magnesium [Mass/volume] in Serum or Plasma 1.9 mg/dL 1.7-2.2 [facility] ID Date Data Source [id number] 02/19/2020 05:48:[address] [facility] Name Value Range Interpretation Code Description Data Zahida rce(s) Supporting Document(s) Phosphate [Mass/volume] in Serum or Plasma 3.6 mg/dL 2.5-4.5 [facility] ID Date Data Source [id number] 02/18/2020 10:37:51 PM [facility] Value Range Interpretation Code Description Data Zahida rce(s) Supporting Document(s) Leukocytes [#/volume] in Blood by Automated count 9.5 10*3/uL 4.5-13 [facility] Erythrocytes [#/volume] in Blood by Automated count 3.52 10*6/uL 4.6- 6.1 L [facility] Hemoglobin [Mass/volume] in Blood 10.9 g/dL 13.5-18 L [facility] Hematocrit [Volume Fraction] of Blood by Automated count 30.9 % 4 1-53 L [facility] Erythrocyte mean corpuscular volume [Entitic volume] by Auto mated count 87.9 fL 80-96 [facility] Erythrocyte mean corpuscular hemoglobin [Entitic mass] by Automated count 30.9 pg 27-33 [facility] Erythrocyte mean corpuscular hemoglobin concentration [Mass/volume] by Automated count 35.1 g/dL 32.0-36.0 [facility] width [Ratio] by Automated count 12.9 % 11.5-14.5 [facility] Platelets [#/volume] in Blood by Automated count 154 10*3/uL 150-400 [facility] Differential cell count method - Blood [facility] Neutrophils/100 leukocytes in Blood by Automated count 69 % [facility] Lymphocytes/100 leukocytes in Blood by Automated count 19 % [facility] Monocytes/100 leukocytes in Blood by Automated count 8 % [facility] Eosinophils/100 leukocytes in Blood by Automated count 3 % [facility] Basophils/100 leukocytes in Blood by Automated count 1 % [facility] Neutrophils [#/volume] in Blood by Automated count 6.58 10*3/uL 1.8-7 .0 [facility] Lymphocytes [#/volume] in Blood by Automated count 1.85 10*3/uL 1.2-4 .0 [facility] Monocytes [#/volume] in Blood by Automated count 0.79 10*3/uL 0-0.8 [facility] Eosinophils [#/volume] in Blood by Automated count 0.24 10*3/uL 0-0.5 [facility] Basophils [#/volume] in Blood by Automated count 0.06 10*3/uL 0-0.2 [facility] Nucleated erythrocytes/100 leukocytes [Ratio] in Blood by Automated count 0 /100{WBCs} 0-0 [facility] ID Date Data Source [id number] 02/18/2020 10:53:[address] [facility] Name Value Range Interpretation Code Description Data Zahida rce(s) Supporting Document(s) Bicarbonate [Moles/volume] in Serum 27 mmol/L 22-29 [facility] Chloride [Moles/volume] in Serum or Plasma 100 mmol/L 98-107 [facility] Creatinine [Mass/volume] in Serum or Plasma 0.92 mg/dL 0.70-1.20 [facility] Glucose [Mass/volume] in Serum or Plasma 118 mg/dL 70-140 [facility] Potassium [Moles/volume] in Serum or Plasma 3.7 mmol/L 3.4-5.1 [facility] Hemolyzed Sodium [Moles/volume] in Serum or Plasma 137 mmol/L 136-145 [facility] Urea nitrogen [Mass/volume] in Serum or Plasma 15 mg/dL 6-20 [facility] Anion gap 3 in Serum or Plasma 10 mmol/L 8-15 [facility] Osmolality of Serum or Plasma by calculation 285 mosm/kg 275-300 [facility] Creatinine/Urea nitrogen [Mass Ratio] in Serum or Plasma 16 [facility] Calcium [Mass/volume] in Serum or Plasma 8.1 mg/dL 8.6-10.0 L [facility] Glomerular filtration rate/1.73 sq M pre dicted among non-blacks [Volume Rate/Area] in Serum or Plasma by Creatinine-based formula (MDRD) >6 0 [facility] Glomerular filtration rate/1.73 sq M pre dicted among blacks [Volume Rate/Area] in Serum or Plasma by Creatinine-based formula (MDRD) >60 [facility] ID Date Data Source [id number] 02/18/2020 05:32:42 PM EDT [facility] Name Value Range Interpretation Code Description Data Zahida e(s) Supporting Document(s) Consultation [facility] [id number]/LDPrcNRReg0UyJYxkVEa3NYjdJFUrT6NwZNI6xV4oGND6AXeGTrJfOaPdXMZs [facility] QqLonKLnWdQPJcDkaZTnNbABcsBhxxjHZeCG9ZcIJ7TORmO43dBSKnIIIkF4ZfKQI7SIR+Pv2HVDHbmY YsFE4OMazQ6D6vnon9Fl1sok1JIV1YGGY0tXoGrCiAFKlNb/RimrOh2l6+WXMqy7yKGDD0W/413QNm4V 59U3hB8qBFzNq1U2JahoLKXXKIwDy++1KbwwAxusH9 v/4zTgNxvhR//KcrXpTHlDbiM4jN5YQ1gAwMU+R/Sv/DR34Sed1xJ+TaxPQib/gngxqLH0qCxsd2stlY 5Mm322F4Gfpne2XiMkp6tcr+ETKJZaSCj0+tpssO3pTq2h2ji+9Fyq/2SLw1nhMkhc+EII4j45PdwT8c Mi3LsiHVGgfB5zynX6ZevOgpdLwv2LfUO/Lesli+Xuts [file] Pxx/xSNHvgfLhY6KMjYxHNacexEmP9bjWblMuYgOc5S8yXoQT1hg7ax8/QtlA/color worker/GB1YhNsjN6r72uM [file] [id number]= Procedure Social History Code Duration Value Status Description Data Source(s ) Alcohol intake 02/17/2020 12:00:00 AM EDT Ex-drinker (finding) comp leted Ex- drinker (finding) [facility] Smoking 02/17/2020 12:00:00 AM EDT Unknown if ever smoked comp leted Unknown if ever smoked [facility] Vital Signs ID Date Data Source [id number] 03/02/2020 08:50:[address] [facility] Name Value Range Interpretation Code Description Data Source(s) WEIGHT RECORDED 186.9 lb 186.9 lb [facility] Body height Measured 70 in 70 in [facility] Patient Treatment Plan of Care Planned Activity Planned Date Details Description Data Source (s) Ergocalciferol 39111 UNT Oral Capsule 02/25/2020 12:00:00 AM [facility] Oxycodone Hydrochloride 5 MG Oral Tablet 02/20/2020 12:00:00 AM [facility] Methocarbamol 500 MG Oral Tablet 02/20/2020 12:00:00 AM [facility] gabapentin 300 MG Oral Capsule 02/20/2020 12:00:00 AM [facility] 0.3 ML Enoxaparin sodium 100 MG/ML Prefilled Syringe 12:00:00 AM [facility] Docusate Sodium 100 MG Oral Capsule 02/20/2020 12:00:00 AM [facility] Acetaminophen 325 MG Oral Tablet 02/20/2020 12:00:00 AM [facility] Cholecalciferol 1000 UNT Oral Tablet 02/20/2020 12:00:00 AM [facility] Calcium Citrate 950 MG Oral Tablet 02/20/2020 12:00:00 AM [facility] Ascorbic Acid 500 MG Oral Tablet 02/20/2020 12:00:00 AM [facility] Oxycodone Hydrochloride 5 MG Oral Tablet 02/19/2020 12:00:00 AM [facility] Methocarbamol 500 MG Oral Tablet 02/19/2020 12:00:00 AM [facility] gabapentin 300 MG Oral Capsule 02/19/2020 12:00:00 AM [facility] 0.3 ML Enoxaparin sodium 100 MG/ML Prefilled Syringe 020 12:00:00 AM [facility] Docusate Sodium 100 MG Oral Capsule 02/19/2020 12:00:00 AM [facility] Acetaminophen 325 MG Oral Tablet 02/19/2020 12:00:00 AM [facility] Oxycodone Hydrochloride 5 MG Oral Tablet 02/18/2020 08:49:17 PM [facility] 24 HR Nicotine 0.583 MG/HR Transdermal Patch 02/18/2020 03:00:00 PM [facility] ondansetron (ZOFRAN) injection 4 mg 02/17/2020 04:42:50 PM [facility] fentaNYL (SUBLIMAZE) 100 MCG/2ML (PF) injection 02/17/2020 02:54:47 PM [facility]
[2020-07-05 18:36] VITALS: BP 119/97
== END 2020-07-05 18:39 | disposition home or self-care (01) ==
LOC: M ED 16:50
DX: Z48.02 Encounter for removal of sutures (principal); J45.909 Unspecified asthma, uncomplicated; Z98.890 Other specified postprocedural states

== ENCOUNTER 2022-06-06 14:11 | Emergency (ER) | payer OTHER ==
[~2022-06-06] VITALS: Ht 177.8 cm; Wt 127.3 kg
[2022-06-06 15:42] VITALS: BP 117/64
== END 2022-06-06 15:46 | disposition home or self-care (01) ==
LOC: EDBD 14:11 → M ED 14:11
DX: S50.811A Abrasion of right forearm, initial encounter (principal); S00.83XA Contusion of other part of head, initial encounter; S70.01XA Contusion of right hip, initial encounter; V49.59XA Passenger injured in collision with other motor vehicles in traffic accident, initial encounter; E66.9 Obesity, unspecified

== ENCOUNTER → 2024-10-22 | Outpatient (CLI) | payer OTHER | LOC: M OUTALCOH 10:34 | PROVIDERS: ATTEND Psychiatry & Neurology Psychiatry | DX: Z03.89 Encounter for observation for other suspected diseases and conditions ruled out (principal) ==